=== PATIENT | male | born 1995 | race Caucasian/White ===

== ENCOUNTER 2019-03-15 05:24 | Emergency (ER) | payer OTHER ==
[~2019-03-15] VITALS: Ht 172.7 cm; Wt 114.1 kg
[2019-03-15 07:17] LABS: BASO % 0.5 % (0.0-1.0); EOS # 0.2 10^3/uL (0.0-0.50); HEMATOCRIT 49.8 % (42.0-52.0); HEMOGLOBIN 17.1 g/dl (13.5-17.5); MEAN CORPUSCULAR HGB CONC 34.3 g/dl (32.0-36.5); MEAN CORPUSCULAR VOLUME 93.1 fl (80.0-96.0); MONO # 0.7 10^3/uL (0.0-0.8); MONO % 10.6 % (0.0-5.0); NEUTROPHILS # 3.6 10^3/uL (1.8-7.7); NEUTROPHILS % 54.7 % (36.0-66.0); PLATELET COUNT, AUTOMATED 208 10^3/uL (150-450); RED BLOOD COUNT 5.35 10^6/uL (4.30-6.10); WHITE BLOOD COUNT 6.6 10^3/uL (4.0-10.0)
[2019-03-15 07:58] LABS: BLOOD UREA NITROGEN 10 MG/DL (7-18); CALCIUM LEVEL 9.1 MG/DL (8.5-10.1); CARBON DIOXIDE LEVEL 31 MEQ/L (21-32); CHLORIDE LEVEL 105 MEQ/L (98-107); CREATININE FOR GFR 0.98 MG/DL (0.70-1.30); GLOMERULAR FILTRATION RATE > 60.0 (>60); GLUCOSE, FASTING 97 MG/DL (70-100); POTASSIUM SERUM 4.7 MEQ/L (3.5-5.1); SODIUM LEVEL 138 MEQ/L (136-145)
--- NOTE | 2019-03-15 09:13 | REP ---
CHEST, TWO VIEWS: There is no evidence of acute infiltrate. No pleural effusion is seen. The heart is normal in size. The mediastinal silhouette is unremarkable. The visualized osseous structures are intact. IMPRESSION: No acute pulmonary disease. Electronically Signed by Dae Gilmore MD 03/15/2019 04:21 P
[2019-03-15 09:19] VITALS: BP 132/60
--- NOTE | 2019-03-15 14:49 | ECGEPIP ---
Stationary ECG Study [facility] - ED Test Date: 2019-03-15 Pat Name: OCTAVIO EUGENE Department: Room: - Gender: M [employer]: [facility] : 1995 Requested By: ESAU MOONEY Order Number: [id number] Reading MD: Donn Arias Measurements Intervals [place] Rate: 82 P: 11 [place]: 132 QRS: 70 QRSD: 97 T: 21 QT: 345 QTc: 403 Interpretive Statements SINUS RHYTHM Comparison tracing not on file Electronically Signed On 03-15-2019 14:49:23 EDT by Donn Arias
== END 2019-03-15 09:21 | disposition home or self-care (01) ==
LOC: M ED 05:24
DX: R55 Syncope and collapse (principal); Z88.0 Allergy status to penicillin; F17.210 Nicotine dependence, cigarettes, uncomplicated